=== PATIENT | female | born 1950 ===

== ENCOUNTER 2018-03-30 03:01 | Emergency (ER) | payer OTHER ==
[~2018-03-30] VITALS: Ht 152.4 cm; Wt 50.8 kg
[~2018-03-30 03:01] MED LIST: DOCU100 PO
[2018-03-30] MEDS ORDERED: DIAZ5 PO (03:46)
[2018-03-30] MEDS ORDERED: IBUP400 PO (03:47)
[2018-03-30] MEDS ORDERED: LORZONE375 MG PO (03:48)
[2018-03-30] MEDS ORDERED: TRIAMT/HCTZ TAB 37. (03:49)
[2018-03-30] MEDS ORDERED: FLUARIX QU60 MCG/0.6 (03:49)
[2018-03-30] MEDS ORDERED: PRAVASTATIN SOD10 MG PO (03:49)
[2018-03-30] MEDS ORDERED: Pravachol40 MG (03:49)
[2018-03-30 03:57] LABS: Source, Urine Clean Catch
[2018-03-30 03:58] LABS: Bilirubin, Urine Neg (Neg); Blood, Urine 1+ (Neg); Glucose Qualitative, Urine Neg (Neg); Ketones, Urine Neg (Neg); Leukocyte Esterase, Urine Neg (Neg); Nitrite, Urine Neg (Neg); Protein, Urine Neg (Neg); Urobilinogen, Urine NORM (Normal)
[2018-03-30 04:05] LABS: Appearance, Urine Clear (Clear); Color, Urine Yellow (P-Yellow)
[2018-03-30 04:11] LABS: Bacteria Not Seen /hpf; Red Blood Cells, Urine Rare /hpf (0-2); Squamous Epithelial Cells Not Seen /hpf (Few); White Blood Cells, Urine Not Seen /hpf (0-5)
[2018-03-30] MEDS ORDERED: Voltaren100 GM TOP (04:38)
[2018-03-30] MEDS ORDERED: CYCL10 PO (04:38)
== END 2018-03-30 04:56 | disposition home or self-care (01) ==
LOC: ER 03:01
PROVIDERS: Emergency Medicine
DX: M62.830 Muscle spasm of back (principal); Z88.8 Allergy status to other drugs, medicaments and biological substances; Z79.899 Other long term (current) drug therapy
CPT/HCPCS: 81001; 99283

== ENCOUNTER → 2018-06-06 | Outpatient (CLI) | payer OTHER ==
[~2018-06-06] MED LIST changes: +CYCL10 PO; +DIAZ5 PO; +FLUARIX QU60 MCG/0.6; +IBUP400 PO; +LORZONE375 MG PO; +PRAVASTATIN SOD10 MG PO; +Pravachol40 MG; +TRIAMT/HCTZ TAB 37.; +Voltaren100 GM TOP
== END | disposition home or self-care (01) ==
LOC: PLD 10:27 → LAB SHORT 10:27
DX: D22.62 Melanocytic nevi of left upper limb, including shoulder (principal)
CPT/HCPCS: 88305

== ENCOUNTER → 2019-10-09 | Outpatient (CLI) | payer OTHER | END | disposition home or self-care (01) | LOC: LAB SHORT 08:56 → PLD 08:56 | DX: L30.8 Other specified dermatitis (principal) | CPT/HCPCS: 88305; 88312 ==

== ENCOUNTER 2023-04-02 21:40 | Emergency (ER) | payer MEDICARE, OTHER ==
[~2023-04-02] VITALS: Ht 152.4 cm; Wt 49.0 kg
[2023-04-03 02:30] VITALS: BP 114/60
== END 2023-04-03 03:42 | disposition home or self-care (01) ==
LOC: ER 21:40
DX: S06.0X0A Concussion without loss of consciousness, initial encounter (principal); W18.30XA Fall on same level, unspecified, initial encounter; Z88.8 Allergy status to other drugs, medicaments and biological substances; Z79.899 Other long term (current) drug therapy
CPT/HCPCS: 70450; 99283-25

== ENCOUNTER → 2024-01-25 | Outpatient (CLI) | payer MEDICARE, OTHER ==
[2024-01-26 12:36] LABS: Bacterial Vaginosis PCR Negative (NEGATIVE); Candida Group, PCR NOT DETECTED (NOT DETECT); Candida glabrata-krusei, PCR NOT DETECTED (NOT DETECT)
== END ==
LOC: LAB 12:19 → LAB SHORT 12:19
PROVIDERS: Physician Assistant
DX: N39.0 Urinary tract infection, site not specified (principal); R30.0 Dysuria; N77.1 Vaginitis, vulvitis and vulvovaginitis in diseases classified elsewhere
CPT/HCPCS: 87077; 87086; 87186; 87481; 87661; 87801

== ENCOUNTER 2024-07-17 10:20 | Emergency (ER) | payer MEDICARE, OTHER ==
[~2024-07-17] VITALS: Ht 152.4 cm; Wt 50.8 kg
[2024-07-17 10:53] LABS: BASOPHILS ABSOLUTE AUTO 0.04 K/mm3 (0.00-0.23); BASOPHILS PERCENT AUTO 1 % (0-2); EOSINOPHILS ABSOLUTE AUTO 0.02 K/mm3 (0.00-0.68); EOSINOPHILS PERCENT AUTO 0 % (0-6); Hematocrit 40.5 % (33.0-51.0); Hemoglobin 13.5 g/dL (11.5-16.0); IMMATURE GRAN ABSOLUTE AUTO 0.01 K/mm3 (0.00-0.10); IMMATURE GRAN PERCENT AUTO 0 % (0-1); LYMPHOCYTES ABSOLUTE AUTO 2.49 K/mm3 (0.84-5.20); LYMPHOCYTES PERCENT AUTO 44 % (21-46); MONOCYTES ABSOLUTE AUTO 0.43 K/mm3 (0.16-1.47); MONOCYTES PERCENT AUTO 8 % (4-13); Mean Corpuscular HGB Conc 33.3 g/dL (31.5-36.5); Mean Corpuscular Volume 96 fL (80-100); Mean Platelet Volume 11.4 fL (9.1-12.4); NEUTROPHILS ABSOLUTE AUTO 2.69 K/mm3 (1.96-9.15); NEUTROPHILS PERCENT AUTO 47 % (41-73); Platelet Count 242 K/mm3 (150-400); RDW Coefficient Variation 12.8 % (11.7-14.2); RDW Standard Deviation 45.3 fL (35.1-46.3); Red Blood Cell Count 4.22 M/mm3 (3.80-5.20); White Blood Cell Count 5.68 K/mm3 (4.00-11.30)
[2024-07-17 11:06] LABS: Albumin, Blood 4.1 g/dL (3.4-5.0); Albumin/Globulin Ratio 1.1 (0.8-1.8); Bilirubin, Total 1.6 mg/dL (0.1-1.0); Bun/Creatinine Ratio 30.8 (12.0-20.0); Calcium, Blood 9.4 mg/dL (8.5-10.1); Creatinine, Blood 0.75 mg/dL (0.40-1.00); Globulin, Blood 3.7 g/dL (2.2-4.0); Potassium, Blood 3.9 mmol/L (3.5-5.5); Total Protein, Blood 7.8 g/dL (6.4-8.2)
[2024-07-17] MEDS ORDERED: EZETIMIBE10 M6 PO (12:03)
[2024-07-17] MEDS ORDERED: PRAV20 PO (12:03)
[2024-07-17] MEDS ORDERED: TELM20 PO (12:04)
[2024-07-17] MEDS ORDERED: DYAZIDE 37.5-21 EACH PO (12:06)
[2024-07-17 12:45] VITALS: BP 131/71
== END 2024-07-17 13:17 | disposition home or self-care (01) ==
LOC: ER 10:20
PROVIDERS: Emergency Medicine
DX: I10 Essential (primary) hypertension (principal); E78.5 Hyperlipidemia, unspecified; Z88.8 Allergy status to other drugs, medicaments and biological substances; Z79.899 Other long term (current) drug therapy
CPT/HCPCS: 71046; 80053; 84484; 85025; 93005; 93010; 99284-25